=== PATIENT | female | born 1930 | race Caucasian/White ===

== ENCOUNTER 2016-08-08 06:22 | Outpatient (CLI) | payer OTHER ==
[2013-09-11 14:10] VITALS: BMI 27.3
[2016-08-08 06:31] LABS: ADD URINE MICROSCOPIC YES; BILIRUBIN,URINE Negative (NEGATIVE); KETONES,URINE Negative (NEGATIVE); LEUKOCYTE ESTERASE ,URINE 2+ (NEGATIVE); NITRITE,URINE Negative (NEGATIVE); PH,URINE 7.5 (5-9); PROTEIN,URINE 2+ (NEGATIVE); URINE, BLOOD 3+ (NEGATIVE)
[2016-08-08 06:33] LABS: BACTERIA,URINE 3+ (NOT PRESENT)
== END 2016-08-08 06:23 | disposition home or self-care (01) ==
LOC: NONPT 06:22
PROVIDERS: ATTEND Family Medicine
DX: R50.9 Fever, unspecified (principal)
CPT/HCPCS: 81001; 87086; 87186

== ENCOUNTER 2016-08-11 11:43 | Outpatient (CLI) ==
[2013-09-11 14:10] VITALS: BMI 27.3
== END 2016-08-11 11:44 | disposition home or self-care (01) ==
LOC: NONPT 11:43
PROVIDERS: ATTEND Family Medicine
DX: S51.001A Unspecified open wound of right elbow, initial encounter (principal)
CPT/HCPCS: 87070; 87186

== ENCOUNTER 2016-08-15 19:38 | Outpatient (CLI) ==
[2013-09-11 14:10] VITALS: BMI 27.3
== END 2016-08-15 19:39 | disposition home or self-care (01) ==
LOC: AMBL 19:38
PROVIDERS: ATTEND Emergency Medicine
DX: R62.7 Adult failure to thrive (principal); G30.9 Alzheimer's disease, unspecified; F02.80 Dementia in other diseases classified elsewhere, unspecified severity, without behavioral disturbance, psychotic disturbance, mood disturbance, and anxiety; K59.00 Constipation, unspecified; M54.9 Dorsalgia, unspecified

== ENCOUNTER 2016-08-25 12:41 | Outpatient (CLI) | payer OTHER ==
[2013-09-11 14:10] VITALS: BMI 27.3
== END 2016-08-25 12:42 | disposition home or self-care (01) ==
LOC: NONPT 12:41
PROVIDERS: ATTEND Family Medicine
DX: S51.001A Unspecified open wound of right elbow, initial encounter (principal)
CPT/HCPCS: 87070; 87186

== ENCOUNTER 2016-09-08 11:39 | Outpatient (CLI) ==
[2013-09-11 14:10] VITALS: BMI 27.3
== END 2016-09-08 11:40 | disposition home or self-care (01) ==
LOC: NONPT 11:39
PROVIDERS: ATTEND Family Medicine
DX: S51.001A Unspecified open wound of right elbow, initial encounter (principal)
CPT/HCPCS: 87070; 87186

== ENCOUNTER 2016-09-25 08:25 | Outpatient (CLI) ==
[2013-09-11 14:10] VITALS: BMI 27.3
== END 2016-09-25 08:26 | disposition home or self-care (01) ==
LOC: NONPT 08:25
PROVIDERS: ATTEND Family Medicine
DX: S51.001A Unspecified open wound of right elbow, initial encounter (principal)
CPT/HCPCS: 87070; 87186

== ENCOUNTER 2016-10-04 07:37 | Outpatient (CLI) ==
[2016-10-04 19:47] VITALS: BMI 23.1
== END 2016-10-04 07:38 | disposition home or self-care (01) ==
LOC: AMBL 07:37
PROVIDERS: ATTEND Family Medicine
DX: R06.9 Unspecified abnormalities of breathing (principal); R50.9 Fever, unspecified; R82.90 Unspecified abnormal findings in urine; G30.9 Alzheimer's disease, unspecified; F02.80 Dementia in other diseases classified elsewhere, unspecified severity, without behavioral disturbance, psychotic disturbance, mood disturbance, and anxiety; R40.2431 Glasgow coma scale score 3-8, in the field [EMT or ambulance]

== ENCOUNTER 2016-10-04 07:47 | Inpatient (IN) ==
[2016-10-04] MEDS ORDERED: URO-JET MUCOUSMEMB STA (07:50)
[2016-10-04] MEDS ORDERED: SODIUM CHLORIDE 1,000 ML IV STA ×3 (07:52→07:56)
[2016-10-04] MEDS ORDERED: ZOSYN 3.375 GM 3.375 GM in SODIUM CHLORIDE 100 ML IV STA (07:53)
[2016-10-04] MEDS ORDERED: VANCOMYCIN 1 GM in SODIUM CHLORIDE 250 ML IV STA (07:53)
[2016-10-04 08:14] LABS: BASOPHILS # (AUTO) 0.1 K/uL (0-0.2); BASOPHILS % (AUTO) 0.3 % (0.0-3.0); HEMATOCRIT 34.8 % (37.0-47.0); HEMOGLOBIN 11.3 g/dl (12.0-16.0); IMMATURE GRANULOCYTE % (AUTO) 0.9 % (0.0-5.0); LYMPHOCYTES # (AUTO) 1.5 K/uL (0.60-3.4); LYMPHOCYTES % (AUTO) 5.7 (10.0-50.0); MEAN CORPUSCULAR HEMOGLOBIN 29.4 pg (27.0-31.0); MEAN CORPUSCULAR HGB CONC 32.5 (31.8-35.4); MEAN CORPUSCULAR VOLUME 90.4 fl (81.0-99.0); MONOCYTES # (AUTO) 1.6 K/uL (0.4-2.0); MONOCYTES % (AUTO) 6.2 (0-10); NEUTROPHILS # (AUTO) 22.9 K/ul (2.0-6.9); NEUTROPHILS % (AUTO) 86.9; PLATELET COUNT 214 10^3/uL (140-440); RED BLOOD COUNT 3.85 10^6/ul (4.20-5.40)
[2016-10-04 08:15] LABS: WHITE BLOOD COUNT 26.34 K/ul (4.6-10.2)
[2016-10-04 08:29] LABS: ALBUMIN 2.9 g/dL (3.4-5.0); ALBUMIN/GLOBULIN RATIO 0.62; ANION GAP 20.6; BILIRUBIN,TOTAL 0.71 mg/dL (0.00-1.20); CREATININE 1.9 mg/dL (0.60-1.30); POTASSIUM 3.6 mmol/L (3.5-5.10); TOTAL PROTEIN 7.6 g/dL (5.8-8.1)
--- NOTE | 2016-10-04 08:46 | CT ---
EXAM: CT of the head without contrast History: Altered mental status. Technique: Multiplanar CT images through the head were obtained without the administration of IV co ntrast Findings: Motion artifact. The visualized paranasal sinuses and mastoid air cells are clear in gen eral. No acute calvarial abnormalities are identified within limitations of the motion artifact. Intracranially there is age appropriate atrophy. No dominant mass or midline shift. No hydrocephal ous. No acute intracranial hemorrhage or abnormal extraaxial fluid collections. Impression: No acute intracranial process.
[2016-10-04 08:49] LABS: ABG PCO2 29.4 mmHg (35-45); ABG PH 7.47 (7.35-7.45)
--- NOTE | 2016-10-04 08:49 | CT ---
EXAM: CT of the chest without contrast History: Cough and fever. Comparison: CT abdomen pelvis 10/04/2016 Technique: Multiplanar CT images through the thorax were obtained without the administration of IV contrast Findings: Heart is mildly enlarged. Coronary artery calcifications. Biapical lung scarring. Left lower lobe infiltrate and trace left pleural effusion. No pneumothorax. No pathologically enlarged axillary or mediastinal lymph nodes. Evaluation for hilar lymph nodes is limited due to the lack o f contrast administration. Great vessels are grossly unremarkable. Fluid seen within the esophagus . Small hiatal hernia. Partially visualized abdominal aortic aneurysm measuring up to 5.2 cm. Right hydronephrosis. Osteo penia. No acute osseous abnormalities. Impression: 1. Left lower lobe infiltrate and trace left pleural effusion. 2. Mild cardiomegaly and coronary artery disease. 3. Fluid within the esophagus suggesting reflux. 4. Small hiatal hernia. 5. Partially visualized large abdominal aortic aneurysm and right hydronephrosis. Please see dedic ated CT abdomen pelvis done on the same day for additional details.
[2016-10-04 08:50] LABS: ERYTHROCYTE SEDIMENTATION RATE 76 mm/hr (0-20); ESR INTERNAL QC INTERNAL QC VALID
[2016-10-04 08:50] LABS: ABG BASE EXCESS -2 (-2.0-2.0); ABG HCO3 21.5 (22.0-26.0); ABG TCO2 22 (22.0-28.0)
--- NOTE | 2016-10-04 08:52 | CT ---
EXAM: CT scan of the abdomen and pelvis without contrast HISTORY: UTI, questionable obstruction. TECHNIQUE: Imaging of the abdomen and pelvis was performed without intravenous contrast. 3 mm thin axial images and coronal and sagittal reconstructions were provided for interpretation. FINDINGS: There is moderate dilatation of the calyces of the right kidney and dilatation of the rig ht ureter. No definite right ureteral calculi are seen. A Bhandari catheter is identified within the u rinary bladder. The tip of the Bhandari catheter is identified within the distal right ureter. The liver, spleen, pancreas, adrenal glands appear normal. The small and large bowel loops are norm al caliber. There is fusiform aneurysmal dilatation of the infrarenal abdominal aorta measuring 4.7 cm transverse, 4.5 cm AP. The helical images obtained through the pelvis demonstrate a normal appearance of the rectum, there is no free fluid seen within the pelvis. The urinary bladder appears to be decompressed. The appen lisette appears normal. The patchy opacities are seen within the left lung base. No lytic or blastic le sions are seen within the osseous structures. IMPRESSION: There is moderate dilatation of the right ureter and calyces of the right kidney. No d efinite obstructing ureteral calculi seen. The findings may represent recent passage of a right uret eral calculus. A Bhandari catheter is identified within the urinary bladder. The distal end of the Bhandari catheter is located within the distal right ureter. Fusiform aneurysmal dilatation of the infrarenal abdominal aorta measuring 4.7 cm transverse, 4.5 cm AP. No evidence for small bowel obstruction.
[2016-10-04 09:11] LABS: BILIRUBIN,URINE Negative (NEGATIVE); KETONES,URINE Negative (NEGATIVE); LEUKOCYTE ESTERASE ,URINE 3+ (NEGATIVE); NITRITE,URINE Negative (NEGATIVE); PH,URINE >=9.0 (5-9); PROTEIN,URINE 3+ (NEGATIVE); URINE, BLOOD 3+ (NEGATIVE)
[2016-10-04 09:12] LABS: ADD URINE MICROSCOPIC YES
[2016-10-04 09:13] LABS: BACTERIA,URINE 2+ (NOT PRESENT)
--- NOTE | 2016-10-04 09:13 | ED.PDOC ---
General ED Provider: Dr. CAROLINA NESBITT-ER Chief Complaint: Shortness of Air Stated Complaint: shes sob and running a fever Time Seen by Physician: 07:50 Mode of Arrival: Ambulance Information Source: [facility], EMT Exam Limitations: Dementia, Altered mental status Primary Care Provider: SHAYY SHAIKH Nursing and Triage Documentation Reviewed and Agree: Yes Respiratory Complaint Exam - Respiratory Complaint/Exam Onset/Duration: less than 24hrs Symptoms Are: Resolved Timing: Intermittent Initial Severity: Mild Current Severity: Moderate Location: Chest Character: Reports: Non-productive cough Alleviating: Reports: None Associated Signs and Symptoms: Reports: Rapid breathing, Fever, Chills, Decreased oral intake. Denies: Dyspnea, Chest pain, Pleuritic chest pain, Wheezing, Hemoptysis, Dizziness, Calf pain, Calf swelling, Edema, URI, Nasal congestion, Hoarseness, Sinus discomfort, Vomiting, Sore throat, Weight loss, Increased thirst, Increased appetite, Increased urination History of Healthcare-Acquired Pneumonia: Lives at [facility] Home Oxygen Use: No Recent Stress Test: No Recent Echo/LV Function: No Current Antibiotic Use: No Current Asthma Medication Use: No Respiratory Distress: None Inadequate Respiratory Effort: No Dysphagia Present: No Stridor Present: No JVD Present: No Accessory Muscle Use: No Retractions: Not Present Diminished Breath Sounds: Yes Sinus Tenderness: None Grunting Respirations: No Kussmaul Respirations: No Differential Diagnoses: Pneumonia, Other Non-Traumatic Chest Pain Syncope: EKG Performed Review of Systems - Review Of Systems Constitutional: Reports: Chills, Fever, Weakness, Loss of appetite Eyes: Reports: No symptoms Ears, Nose, Mouth, Throat: Reports: No symptoms Respiratory: Reports: Cough Cardiac: Reports: No symptoms GI: Reports: No symptoms : Reports: No symptoms Musculoskeletal: Reports: No symptoms Skin: Reports: No symptoms Neurological: Reports: Cognitive dysfunction, Weakness Endocrine: Reports: No symptoms Hematologic/Lymphatic: Reports: No symptoms All Other Systems: Reviewed and Negative Past Medical History - Past Medical History Previously Healthy: Yes Endocrine: Reports: Unknown Cardiovascular: Reports: Unknown Respiratory: Reports: Unknown Hematological: Reports: Unknown Gastrointestinal: Reports: Unknown Genitourinary: Reports: Unknown Neuro/Psych: Reports: Dementia Musculoskeletal: Reports: Unknown Cancer: Reports: Unknown Last Menstrual Period: NONE - Surgical History General Surgical History: Reports: Unknown - Family History Family History: Reports: Unknown - Social History Smoking Status: Unknown if ever smoked Hx Substance Use: No Alcohol Screening: None Lives: With family Physical Exam - Physical Exam Appearance: Well-appearing, No pain distress, Well-nourished Eyes: KEY, EOMI, Conjunctiva clear ENT: Ears normal, Nose normal, Oropharynx normal Neck: Supple Respiratory: Airway patent Cardiovascular: RRR, Pulses normal, No rub, No murmur GI/: Soft Musculoskeletal: Normal strength, ROM intact, No edema, No calf tenderness Skin: Warm Neurological: Disoriented Psychiatric: Affect appropriate Interpretation - Radiology Interpretation Radiology Interpretation By: Radiologist Radiology Results: Positive Exam Interpreted: CT Scan - EKG Interpretation Time of EKG #1: 09:14 Rate: Normal Rhythm: Sinus Ectopy: None Center Point: NL ST Segment: Normal Physician Notification - Case Discussed Physician Notified: dr [email or web address] Time of Notification: 09:25 Critical Care Note - Critical Care Note Total Time (mins): 0 Course - Course Hematology/Chemistry: 10/04/16 08:05 10/04/16 08:05 Orders, Labs, Meds: Lab Review 10/04/16 10/04/16 10/04/16 07:49 08:05 08:45 WBC 26.34 H RBC 3.85 L Hgb 11.3 L Hct 34.8 L MCV 90.4 MCH 29.4 MCHC 32.5 RDW Coeff of Jenni 15.6 H Plt Count 214 Immature Gran % (Auto) 0.9 Neut % (Auto) 86.9 Lymph % (Auto) 5.7 L Churchill % (Auto) 6.2 Eos % (Auto) 0.0 Baso % (Auto) 0.3 Immature Gran # (Auto) 0.3 Neut # 22.9 H Lymph # 1.5 Churchill # 1.6 Eos # 0.0 Baso # 0.1 ESR 76 H Puncture Site R rad O2 Saturation 95.0 ABG pH 7.47 H ABG pCO2 29.4 L ABG pO2 70.0 L ABG HCO3 21.5 L ABG Total CO2 22 ABG Base Excess -2 Shyam Test + FiO2 % 21.0 Sodium 145 Potassium 3.6 Chloride 110 H Carbon Dioxide 18 L Anion Gap 20.6 BUN 38 H Creatinine 1.90 H Estimated GFR (MDRD) 25.00 BUN/Creatinine Ratio 20.00 Glucose 181 H Lactic Acid 16.3 Calcium 9.0 Total Bilirubin 0.71 AST 12 L ALT 8 L Alkaline Phosphatase 74 Total Protein 7.6 Albumin 2.9 L Globulin 4.7 Albumin/Globulin Ratio 0.62 Procalcitonin 56.41 Urine Color Yellow Urine Clarity Cloudy Urine pH >=9.0 Ur Specific [place] 1.010 Urine Protein 3+ Urine Glucose (UA) Negative Urine Ketones Negative Urine Blood 3+ Urine Nitrite Negative Urine Bilirubin Negative Urine Urobilinogen 0.2 Ur Leukocyte Esterase 3+ Urine Microscopic RBC 10-20 Urine Microscopic WBC 5-10 Ur Squamous Epith Cells Not present Ur Renal Epithelial Cell 0-2 Calcium Oxalate Crystal 1+ Urine Bacteria 2+ Orders Category Date Time Status ADMIT PATIENT INPATIENT .TO [facility] (NON-MONITORED ADMISSION 10/04/16 09: 27 Active BED) ABG DRAW REQUEST Stat CARDIO 10/04/16 07:49 Completed EKG-(ED ONLY) Stat CARDIO 10/04/16 07:49 Completed NEBULIZER TREATMENT Stat CARDIO 10/04/16 09:32 Ordered OXYGEN Routine CARDIO 10/04/16 09:29 Ordered ACTIVITY .Complete BR CARE 10/04/16 09:27 Active INTAKE & OUTPUT Q8HR CARE 10/04/16 09:27 Active VITAL SIGNS Q4HR CARE 10/04/16 09:27 Active SOFT DIET DIETARY 10/04/16 Lunch Ordered Catheter [ED CATHETER INSERTION AND CARE] .ONCE EMERGENCY 10/04/16 07:50 Active ABG Stat LAB 10/04/16 07:49 Completed BLOOD CULTURE Stat LAB 10/04/16 08:05 Received CBC W/ AUTO DIFF DAILY@0600 LAB 10/05/16 06:00 Ordered CBC W/ AUTO DIFF DAILY@0600 LAB 10/06/16 06:00 Ordered CBC W/ AUTO DIFF DAILY@0600 LAB 10/07/16 06:00 Ordered CBC W/ AUTO DIFF DAILY@0600 LAB 10/08/16 06:00 Ordered CBC W/ AUTO DIFF DAILY@0600 LAB 10/09/16 06:00 Ordered CBC W/ AUTO DIFF DAILY@0600 LAB 10/10/16 06:00 Ordered CBC W/ AUTO DIFF DAILY@0600 LAB 10/11/16 06:00 Ordered CBC W/ AUTO DIFF DAILY@0600 LAB 10/12/16 06:00 Ordered CBC W/ AUTO DIFF DAILY@0600 LAB 10/13/16 06:00 Ordered CBC W/ AUTO DIFF DAILY@0600 LAB 10/14/16 06:00 Ordered CBC W/ AUTO DIFF DAILY@0600 LAB 10/15/16 06:00 Ordered CBC W/ AUTO DIFF DAILY@0600 LAB 10/16/16 06:00 Ordered CBC W/ AUTO DIFF DAILY@0600 LAB 10/17/16 06:00 Ordered CBC W/ AUTO DIFF DAILY@0600 LAB 10/18/16 06:00 Ordered CBC W/ AUTO DIFF DAILY@0600 LAB 10/19/16 06:00 Ordered CBC W/ AUTO DIFF DAILY@0600 LAB 10/20/16 06:00 Ordered CBC W/ AUTO DIFF DAILY@0600 LAB 10/21/16 06:00 Ordered CBC W/ AUTO DIFF DAILY@0600 LAB 10/22/16 06:00 Ordered CBC W/ AUTO DIFF DAILY@0600 LAB 10/23/16 06:00 Ordered CBC W/ AUTO DIFF DAILY@0600 LAB 10/24/16 06:00 Ordered CBC W/ AUTO DIFF Stat LAB 10/04/16 08:05 Completed COMPREHENSIVE METABOLIC PANEL DAILY@0600 LAB 10/05/16 06:00 Ordered COMPREHENSIVE METABOLIC PANEL DAILY@0600 LAB 10/06/16 06:00 Ordered COMPREHENSIVE METABOLIC PANEL DAILY@0600 LAB 10/07/16 06:00 Ordered COMPREHENSIVE METABOLIC PANEL DAILY@0600 LAB 10/08/16 06:00 Ordered COMPREHENSIVE METABOLIC PANEL DAILY@0600 LAB 10/09/16 06:00 Ordered COMPREHENSIVE METABOLIC PANEL DAILY@0600 LAB 10/10/16 06:00 Ordered COMPREHENSIVE METABOLIC PANEL DAILY@0600 LAB 10/11/16 06:00 Ordered COMPREHENSIVE METABOLIC PANEL DAILY@0600 LAB 10/12/16 06:00 Ordered COMPREHENSIVE METABOLIC PANEL DAILY@0600 LAB 10/13/16 06:00 Ordered COMPREHENSIVE METABOLIC PANEL DAILY@0600 LAB 10/14/16 06:00 Ordered COMPREHENSIVE METABOLIC PANEL DAILY@0600 LAB 10/15/16 06:00 Ordered COMPREHENSIVE METABOLIC PANEL DAILY@0600 LAB 10/16/16 06:00 Ordered COMPREHENSIVE METABOLIC PANEL DAILY@0600 LAB 10/17/16 06:00 Ordered COMPREHENSIVE METABOLIC PANEL DAILY@0600 LAB 10/18/16 06:00 Ordered COMPREHENSIVE METABOLIC PANEL DAILY@0600 LAB 10/19/16 06:00 Ordered COMPREHENSIVE METABOLIC PANEL DAILY@0600 LAB 10/20/16 06:00 Ordered COMPREHENSIVE METABOLIC PANEL DAILY@0600 LAB 10/21/16 06:00 Ordered COMPREHENSIVE METABOLIC PANEL DAILY@0600 LAB 10/22/16 06:00 Ordered COMPREHENSIVE METABOLIC PANEL DAILY@0600 LAB 10/23/16 06:00 Ordered COMPREHENSIVE METABOLIC PANEL DAILY@0600 LAB 10/24/16 06:00 Ordered COMPREHENSIVE METABOLIC PANEL Stat LAB 10/04/16 08:05 Completed ESR Stat LAB 10/04/16 08:05 Completed LACTIC ACID Stat LAB 10/04/16 08:05 Completed PROCALCITONIN Stat LAB 10/04/16 08:05 Completed URINALYSIS C & S IF INDICATED Stat LAB 10/04/16 08:45 Completed URINE CULTURE Stat LAB 10/04/16 09:11 Received Acetaminophen [Tylenol] MEDS 10/04/16 09:27 Active 650 mg PO Q4H PRN Bisacodyl [Dulcolax] MEDS 10/04/16 09:31 Discontinued 10 mg PO Q24H PRN Enoxaparin Sodium [Lovenox] MEDS 10/05/16 09:00 Active 30 mg SUBCUT DAILY Levalbuterol HCl [Xopenex 0.63 mg] MEDS 10/04/16 12:00 Active 1 vial NEB RTQ6H Lidocaine HCl [Uro-Jet] MEDS 10/04/16 07:50 Discontinued 10 ml MUCOUSMEMB ONCE STA Piperacillin Sodium/Tazobactam [Zosyn 3.375 gm] 3.375 MEDS 10/04/16 07:53 Discontinued gm 0.9 % Sodium Chloride [Sodium Chloride] 100 ml IV ONCE Sodium Chloride 0.9% [Sodium Chloride] 1,000 ml MEDS 10/04/16 07:56 Active IV 100 mls/hr Sodium Chloride 0.9% [Sodium Chloride] 1,000 ml MEDS 10/04/16 09:30 Active IV 75 mls/hr Vancomycin HCl [Vancomycin] 1 gm MEDS 10/04/16 07:53 Discontinued 0.9 % Sodium Chloride [Sodium Chloride] 250 ml IV ONCE RESUSCITATION STATUS Routine OTHERS 10/04/16 09:[address] ABDOMEN/PELVIS WO CONTRAST Stat RADS 10/04/16 07:[address] CHEST W/O CONTRAST Stat RADS 10/04/16 07:[address] HEAD W/O CONTRAST Stat RADS 10/04/16 07:50 Completed Medications Generic Name Dose Route Start Last Admin Trade Name Freq PRN Reason Stop Dose Admin Acetaminophen 650 mg 10/04/16 09:27 Tylenol PO Q4H PRN Mild Pain Bisacodyl 10 mg 10/04/16 09:59 Dulcolax PO DAILY PRN CONSTIPATION Calcium/Vitamin D 1 each 10/04/16 21:00 Calcium 500 + Vit D 200 Mg Tablet PO BID NEVIN Enoxaparin Sodium 30 mg 10/05/16 09:00 Lovenox SUBCUT DAILY NEVIN Sodium Chloride 1,000 mls @ 100 mls/hr 10/04/16 07:56 10/04/16 08:06 Sodium Chloride IV 10/04/16 17:55 100 mls/hr .Q10H STA Administration Sodium Chloride 1,000 mls @ 75 mls/hr 10/04/16 09:30 Sodium Chloride IV .[id number] NEVIN Piperacillin Sod/Tazobactam 100 mls @ 100 mls/hr 10/04/16 13:00 Sod 2.25 gm/ Sodium Chloride IV Q6HR NEVIN Vancomycin HCl 500 mg/ Sodium 100 mls @ 100 mls/hr 10/05/16 09:00 Chloride IV DAILY NEVIN Levalbuterol HCl 1 vial 10/04/16 12:00 Xopenex 0.63 Mg NEB RTQ6H NEVIN Magnesium Hydroxide 30 ml 10/04/16 09:44 Milk Of Magnesia PO DAILY PRN CONSTIPATION Discontinued Medications Generic Name Dose Route Start Last Admin Trade Name Yvonne PRN Reason Stop Dose Admin Bisacodyl 10 mg 10/04/16 09:31 Dulcolax PO Q24H PRN Constipation Piperacillin Sod/Tazobactam 100 mls @ 100 mls/hr 10/04/16 07:53 10/04/16 09: 07 Sod 3.375 gm/ Sodium Chloride IV 10/04/16 08:52 100 mls/hr ONCE STA Administration Vancomycin HCl 1 gm/ Sodium 250 mls @ 250 mls/hr 10/04/16 07:53 Chloride IV 10/04/16 08:52 ONCE STA Lidocaine HCl 10 ml 10/04/16 07:50 10/04/16 08:51 Uro-Jet MUCOUSMEMB 10/04/16 07:51 Not Given ONCE STA spoke with her grandson poa and made him aware of lab and xray findings --ok for admission here) Vital Signs: Temp Pulse Resp BP Pulse Ox 10/04/16 07:47 98.2 F 87 28 H 110/70 93 L Departure - Departure Time of Disposition: 09:26 Disposition: ADMITTED INPATIENT Discharge Problem: Pyelonephritis, Pneumonia Condition: Poor Pt referred to PMD for follow-up: Yes Allergies/Adverse Reactions: Allergies No Known Allergies Allergy (Verified 10/04/16 08:31) Home Medications: Ambulatory Orders Acetaminophen [Pain Relief] 650 mg PO Q8H PRN 10/04/16 Bisacodyl [Dulcolax] 10 mg PO Q24H PRN 10/04/16 Calcium Carbonate 500 mg PO BID 10/04/16 Magnesium Hydroxide [Milk of Magnesia] 2,400 mg PO DAILY PRN 10/04/16 Nystatin [Nystop Powder] 1 applic TP Q8H PRN 10/04/16 Disposition Discussed With: Patient, Family (left message for poa to call us regarding admission)
[2016-10-04] MEDS ORDERED: TYLENOL PO PRN (09:27)
[2016-10-04] MEDS ORDERED: DULCOLAX PO PRN ×2 (09:31→09:59)
[2016-10-04] MEDS ORDERED: MAGNESIUM HYDROXIDE 2400 MG PO PRN (09:31)
[2016-10-04] MEDS ORDERED: MILK OF MAGNESIA PO PRN (09:44)
[2016-10-04] MEDS ORDERED: ZOSYN 2.25 GM 2.25 GM in SODIUM CHLORIDE 100 ML IV SCH (13:00)
[2016-10-04] MEDS ORDERED: ZOSYN 3.375 GM 3.375 GM in SODIUM CHLORIDE 100 ML IV SCH (13:00)
[2016-10-04] MEDS: ROCEPHIN 1 GM in SODIUM CHLORIDE 50 ML IV SCH (15:03)
[2016-10-04] MEDS: SODIUM CHLORIDE 1,000 ML IV SCH (15:04)
[2016-10-04] MEDS: XOPENEX 0.63 MG NEB SCH ×3 (16:05→23:13)
[2016-10-04] MEDS: BACTROBAN TP SCH ×2 (16:21→21:23)
[2016-10-04 18:39] LABS: ALBUMIN 2.6 g/dL (3.4-5.0); ANION GAP 18.5; BUN/CREATININE RATIO 21.13; CALCIUM 8.5 mg/dL (8.2-10.2); CREATININE 1.94 mg/dL (0.60-1.30); PHOSPHORUS 2.4 mg/dL (2.8-4.1); POTASSIUM 3.5 mmol/L (3.5-5.10)
[2016-10-04 19:47] VITALS: BMI 23.1
[2016-10-04] MEDS ORDERED: CALCIUM CARBONATE 500 MG PO SCH (21:00)
[2016-10-04] MEDS: CALCIUM 500 + VIT D 200 MG TABLET PO SCH (21:23)
[2016-10-05] MEDS: SODIUM CHLORIDE 1,000 ML IV SCH (00:22)
[2016-10-05] MEDS: XOPENEX 0.63 MG NEB SCH ×4 (05:16→23:03)
[2016-10-05 05:28] LABS: BASOPHILS # (AUTO) 0.1 K/uL (0-0.2); BASOPHILS % (AUTO) 0.4 % (0.0-3.0); EOSINOPHILS # (AUTO) 0.2 K/ul (0.0-0.7); EOSINOPHILS % (AUTO) 0.9 % (0.0-7.0); HEMATOCRIT 29.6 % (37.0-47.0); HEMOGLOBIN 9.4 g/dl (12.0-16.0); IMMATURE GRANULOCYTE % (AUTO) 0.9 % (0.0-5.0); LYMPHOCYTES % (AUTO) 10.9 (10.0-50.0); MEAN CORPUSCULAR HEMOGLOBIN 29.4 pg (27.0-31.0); MEAN CORPUSCULAR HGB CONC 31.8 (31.8-35.4); MEAN CORPUSCULAR VOLUME 92.5 fl (81.0-99.0); MONOCYTES # (AUTO) 1.3 K/uL (0.4-2.0); MONOCYTES % (AUTO) 7.4 (0-10); NEUTROPHILS # (AUTO) 14.3 K/ul (2.0-6.9); NEUTROPHILS % (AUTO) 79.5; PLATELET COUNT 147 10^3/uL (140-440); WHITE BLOOD COUNT 17.93 K/ul (4.6-10.2)
[2016-10-05 06:00] LABS: ALBUMIN 2.3 g/dL (3.4-5.0); ALBUMIN/GLOBULIN RATIO 0.53; ANION GAP 15.3; BILIRUBIN,TOTAL 0.32 mg/dL (0.00-1.20); BUN/CREATININE RATIO 25.4; CALCIUM 8.2 mg/dL (8.2-10.2); CREATININE 1.85 mg/dL (0.60-1.30); POTASSIUM 3.3 mmol/L (3.5-5.10); TOTAL PROTEIN 6.6 g/dL (5.8-8.1)
[2016-10-05] MEDS ORDERED: VANCOMYCIN 1 GM in SODIUM CHLORIDE 250 ML IV SCH (09:00)
--- NOTE | 2016-10-05 09:02 | HP ---
SOURCE OF HISTORY: Nurse at [facility] who was in charge of Keturah this morning and triage notes plus MD notes from the emergency room. The patient is non-verbal and is not oriented at all. HISTORY OF PRESENT ILLNESS: The patient was noted to have temperature about 2:00 this morning. The patient was vomiting and was noted to have a cold and clammy perspiration. The patient this morning was noted to have shortness of breath as well fever and so she was sent to the emergency room for further evaluation. The patient is also somewhat lethargic compared to the prior times when she didn't have any problems. The nurse mentioned that this patient behaved similarly when she had Urosepsis. The patient was evaluated in the emergency and had the following radiological studies; CT head no acute intracranial processes; CT chest left lower lobe infiltrate probably pneumonitis with left pleural effusions, small, mild cardiomegaly with CAD, fluid in the esophagus suggesting reflux, large abdominal aortic aneurysm infrarenal about 4.7cm transverse measure and 4.5 anterior and posterior, right hydronephrosis and dilatation of the right ureter with no stone identified. Further studied that patient has Bhandari Catheter in the bladder and the distal end of the Bhandari catheter is located within the distal right ureter. Asked the nurses to felice it and pull it backwards. I will discuss this with the radiologist this coming Wednesday, tomorrow. Labs done showed severe leukocytosis with 26,340, 22.9 neutrophils. ESR 76 probably because of the infection. Blood cultures were obtained at the emergency room. Arterial blood gasses not significantly abnormal. Electrolyte normal except chloride is 110, 107 upper normal, CO2 18, BUN 38, creatine 1.90, EGFR 25. Blood sugar 181, lactic acid normal, procalcitonin markedly elevated 56.41. This patient was given Zosyn plus Vancomycin in the emergency room. I had discontinued the Zosyn and discussing with the PharmD we have replaced with with Rocephin however if the patient has an e-coli and ESBL negative the coverage maybe adequate however if it positive it would be worth while probably to have Ertapenem. Tried to get in touch again with the PharmD. The recent information that I had read was combination of Vancomycin and Zosyn has a higher renal consequences. Did not mention and Beta Lactams antibiotics. Urinalysis abnormal. PAST PERSONAL HISTORY: The patient is non-verbal. This will be just from the previous recorded history. History of Depression Back pain Dementia Constipation FAMILY HISTORY: The patient is non-verbal. I did talk to the Nurse Home nurse and a lady showed up at the Nurse Home from [place] and claimed that she is a daughter of Ms. Agustin. She was given up for adoption years ago. Ms. Agustin also has a daughter but she is now and the grandson is the POA, Gaston Johnson. SOCIAL HISTORY: The patient is and has been resident of [facility] for sometime. Dr. Guerrero is her primary provider. MEDICATIONS: Nystatin Powder to be applied externally every 8 hours as needed Magnesium Hydroxide (Milk of Magnesia) 2,400mg per 10cc, 10cc a day PRN Dulcolax tablet 10mg PO Q 24 hours PRN for constipation Tylenol 650mg Q 8 hours PRN Calcium Carbonate 500mg per cc 5cc twice a day ALLERGIES: No known drug allergies. REVIEW OF SYSTEMS: CONSTITUTIONAL: The patient has fever but no chills [facility]. She was observed to be somewhat lethargic. The rest of the systems review could not done on account of the patient's condition she is non- verbal and not oriented. [employer]ER: VISUAL: AUDITORY: RESPIRATORY: CARDIOVASCULAR: GASTROINTESTINAL: GENITOURINARY: MUSCULOSKELETAL: ENDOCRINE: INTEGUMENT: ENDOCRINE: HEMATOLOGIC: INTEGUMENT: PSYCHIATRIC: PHYSICAL EXAMINATION: GENERAL: The patient is an 85 year old white female who opens her eyes but doesn't answer any questions nor follow verbal commands. She does not appear to be dyspneic or tachypneic and no cyanosis. EYES: Pupils equal/reactive to light. About 3mm in size and both have mature cataracts. Conjunctivae not pale. Sclerae not icteric. FACE: Symmetrical and equal with no facial weakness. MOUTH: The patient would not open her mouth THROAT: No inflammation, tumors or exudate. NECK: No masses. No bruit. No tenderness. No rigidity. CHEST: The patient is kyphotic. No tenderness. LUNGS: Breath sounds are diminished with some expiratory wheeze at the left lower base. However the patient was examined in the left lateral decubitus positive. HEART: Audible and regular with good tones. No murmurs. ABDOMEN: Soft with some tenderness. No muscular guarding, bowel sounds are active. LOWER EXTREMITIES: The patient has superficial area on the 5th MTP joint. This is probably because she is laying most on the left but there is no ulceration. The anterior tibials are present. UPPER EXTREMITIES: The patient has an ulceration in the right posterior elbow. This probably again is secondary to a pressure sore. ASSESSMENT: 1. Urinary tract infection with probable bacteremia if procalcitonin is markedly elevated 2. Senile Dementia, severe 3. Infrarenal abdominal aortic aneurysm 4.7cm 4. Hydroureter and Hydronephrosis, right etiology undetermined maybe secondary to the catheter that is lodged at the distal ureter. PROGNOSIS: Poor PLAN: 1. Will repeat renal panel to see if there is any improvement with the GFR with hydration MTDD
[2016-10-05] MEDS: LOVENOX SUBCUT SCH (10:06)
[2016-10-05] MEDS: ROCEPHIN 1 GM in SODIUM CHLORIDE 50 ML IV SCH (10:06)
[2016-10-05] MEDS: BACTROBAN TP SCH ×2 (10:09→20:25)
[2016-10-05] MEDS: CALCIUM 500 + VIT D 200 MG TABLET PO SCH ×2 (10:10→20:25)
[2016-10-05] MEDS: VANCOMYCIN 500 MG in SODIUM CHLORIDE 100 ML IV SCH (11:18)
[2016-10-05] MEDS ORDERED: INFUVITE ADULT IV ONE (16:13)
[2016-10-05] MEDS: INFUVITE ADULT 10 ML in D5%-1/2NS-KCL 20 MEQ/L IV SOL 1,000 ML IV SCH (16:28)
[2016-10-05] MEDS ORDERED: INVANZ 0.5 GM in SODIUM CHLORIDE 50 ML IV SCH (22:00)
[2016-10-05] MEDS ORDERED: INVANZ ONE (22:41)
[2016-10-06] MEDS: INFUVITE ADULT 10 ML in D5%-1/2NS-KCL 20 MEQ/L IV SOL 1,000 ML IV SCH ×2 (01:09→09:59)
[2016-10-06] MEDS: XOPENEX 0.63 MG NEB SCH ×4 (04:56→23:16)
[2016-10-06 05:23] LABS: BASOPHILS % (AUTO) 0.3 % (0.0-3.0); EOSINOPHILS # (AUTO) 0.8 K/ul (0.0-0.7); EOSINOPHILS % (AUTO) 7.6 % (0.0-7.0); HEMATOCRIT 26.4 % (37.0-47.0); HEMOGLOBIN 8.3 g/dl (12.0-16.0); IMMATURE GRANULOCYTE % (AUTO) 0.5 % (0.0-5.0); LYMPHOCYTES # (AUTO) 1.2 K/uL (0.60-3.4); MEAN CORPUSCULAR HEMOGLOBIN 29.2 pg (27.0-31.0); MEAN CORPUSCULAR HGB CONC 31.4 (31.8-35.4); MONOCYTES # (AUTO) 0.8 K/uL (0.4-2.0); MONOCYTES % (AUTO) 8.1 (0-10); NEUTROPHILS # (AUTO) 7.2 K/ul (2.0-6.9); NEUTROPHILS % (AUTO) 71.5; PLATELET COUNT 142 10^3/uL (140-440); RED BLOOD COUNT 2.84 10^6/ul (4.20-5.40); WHITE BLOOD COUNT 10.05 K/ul (4.6-10.2)
[2016-10-06 05:43] LABS: ALANINE AMINOTRANSFERASE < 6 U/L (12-78); ALBUMIN/GLOBULIN RATIO 0.54; ALKALINE PHOSPHATASE 53 U/L (53-141); ANION GAP 15.3; ASPARTATE AMINO TRANSFERASE 12 U/L (15-37); BLOOD UREA NITROGEN 29 mg/dL (7-18); BUN/CREATININE RATIO 25.21; CALCIUM 7.7 mg/dL (8.2-10.2); CARBON DIOXIDE 19 mmol/L (23-31); CHLORIDE 117 mmol/L (98-107); CREATININE 1.15 mg/dL (0.60-1.30); GLUCOSE 175 mg/dL (82-115); POTASSIUM 3.3 mmol/L (3.5-5.10); SODIUM 148 mmol/L (136-145); TOTAL PROTEIN 5.7 g/dL (5.8-8.1)
[2016-10-06] MEDS: VANCOMYCIN 500 MG in SODIUM CHLORIDE 100 ML IV SCH (08:45)
[2016-10-06] MEDS: CALCIUM 500 + VIT D 200 MG TABLET PO SCH ×2 (08:45→21:51)
[2016-10-06] MEDS: LOVENOX SUBCUT SCH (08:45)
[2016-10-06] MEDS: BACTROBAN TP SCH ×2 (08:48→21:51)
[2016-10-06] MEDS: ROCEPHIN 1 GM in SODIUM CHLORIDE 50 ML IV SCH (10:53)
[2016-10-06] MEDS: SODIUM CHLORIDE 1,000 ML IV SCH (13:51)
[2016-10-06] MEDS: [UNRECOGNIZED DRUG - MIXTURE] IV SCH (18:21)
[2016-10-06] MEDS ORDERED: INVANZ 0.5 GM in SODIUM CHLORIDE 50 ML IV SCH (21:00)
[2016-10-07] MEDS ORDERED: POTASSIUM CHLORIDE 20 MEQ VIAL-ADDITIVE ONLY IV ONE ×3 (00:59→19:53)
[2016-10-07 04:46] LABS: BASOPHILS % (AUTO) 0.4 % (0.0-3.0); EOSINOPHILS # (AUTO) 0.8 K/ul (0.0-0.7); EOSINOPHILS % (AUTO) 10.9 % (0.0-7.0); HEMATOCRIT 26.8 % (37.0-47.0); HEMOGLOBIN 8.7 g/dl (12.0-16.0); IMMATURE GRANULOCYTE % (AUTO) 0.5 % (0.0-5.0); LYMPHOCYTES # (AUTO) 1.5 K/uL (0.60-3.4); LYMPHOCYTES % (AUTO) 19.6 (10.0-50.0); MEAN CORPUSCULAR HEMOGLOBIN 29.4 pg (27.0-31.0); MEAN CORPUSCULAR HGB CONC 32.5 (31.8-35.4); MEAN CORPUSCULAR VOLUME 90.5 fl (81.0-99.0); MONOCYTES # (AUTO) 0.7 K/uL (0.4-2.0); MONOCYTES % (AUTO) 9.1 (0-10); NEUTROPHILS # (AUTO) 4.6 K/ul (2.0-6.9); NEUTROPHILS % (AUTO) 59.5; PLATELET COUNT 142 10^3/uL (140-440); RED BLOOD COUNT 2.96 10^6/ul (4.20-5.40); WHITE BLOOD COUNT 7.69 K/ul (4.6-10.2)
[2016-10-07] MEDS: XOPENEX 0.63 MG NEB SCH ×4 (05:02→23:13)
[2016-10-07 05:11] LABS: ALANINE AMINOTRANSFERASE < 6 U/L (12-78); ALBUMIN 2.1 g/dL (3.4-5.0); ALBUMIN/GLOBULIN RATIO 0.54; ALKALINE PHOSPHATASE 57 U/L (53-141); ANION GAP 15.6; ASPARTATE AMINO TRANSFERASE 12 U/L (15-37); BILIRUBIN,TOTAL 0.34 mg/dL (0.00-1.20); BLOOD UREA NITROGEN 13 mg/dL (7-18); BUN/CREATININE RATIO 15.11; CALCIUM 8.1 mg/dL (8.2-10.2); CARBON DIOXIDE 19 mmol/L (23-31); CHLORIDE 109 mmol/L (98-107); CREATININE 0.86 mg/dL (0.60-1.30); GLUCOSE 109 mg/dL (82-115); POTASSIUM 3.6 mmol/L (3.5-5.10); SODIUM 140 mmol/L (136-145)
[2016-10-07] MEDS: [UNRECOGNIZED DRUG - MIXTURE] IV SCH ×2 (07:33→19:59)
[2016-10-07] MEDS: BACTROBAN TP SCH ×2 (10:16→20:00)
[2016-10-07] MEDS: LOVENOX SUBCUT SCH (10:16)
[2016-10-07] MEDS: CALCIUM 500 + VIT D 200 MG TABLET PO SCH ×2 (10:16→20:00)
[2016-10-07] MEDS: ROCEPHIN 1 GM in SODIUM CHLORIDE 50 ML IV SCH (10:17)
[2016-10-07] MEDS: VANCOMYCIN 500 MG in SODIUM CHLORIDE 100 ML IV SCH (10:18)
[2016-10-07 13:06] LABS: BILIRUBIN,URINE Negative (NEGATIVE); KETONES,URINE Negative (NEGATIVE); LEUKOCYTE ESTERASE ,URINE 1+ (NEGATIVE); NITRITE,URINE Negative (NEGATIVE); PH,URINE 5.5 (5-9); PROTEIN,URINE Negative (NEGATIVE); URINE, BLOOD 2+ (NEGATIVE)
[2016-10-07 13:14] LABS: ADD URINE MICROSCOPIC YES
[2016-10-07 13:15] LABS: BACTERIA,URINE 1+ (NOT PRESENT)
--- NOTE | 2016-10-07 14:17 | PN ---
DATE OF VISIT: 10/05/16 The patient had no oral intake today. The IV fluid amount was increased. CBC showed a decreasing WBC and now 17,930 from 26,340. The hemoglobin is down to 9.4. RDW about the same at 15.7. Cell indices normal. Neutrophils are down to 14.3 from 22.9. There are no stabs. Electrolytes showed slightly lower potassium and slightly higher chlorides 115, upper normal 107. BUN has increased from 41 to 47 and creatinine is down from 1.94 to 1.85. E GFR is 26. I had discussed with the [employer] with regards to Ertapenem and she told me that I can give 500 mg daily in light of the patient's renal problem. The Procalcitonin was elevated and we will repeat that Procalcitonin tomorrow. Lactic acid was normal. The preliminary urine culture showed heavy growth of gram negative rods, may be e.coli. Wound culture with heavy growth of gram positive cocci. The patient has an ulceration of the right elbow. We will try to give Ertapenem 1 dose tonight in light of the heavy growth of gram negative rods. Gram positive should be covered by the Rocephin. The patient is on Vancomycin. VITAL SIGNS: 10/05/2016 at 6 p.m. today showed a temperature of 97.5 tympanic, pulse 64, blood pressure 118/58, respiratory rate 18, oxygen saturation 96 at 2 liters. LUNGS: Still has some coarse rales and coarse breath sounds in the right base. PROGNOSIS: Poor. MTDD
[2016-10-08 04:51] LABS: BASOPHILS # (AUTO) 0.1 K/uL (0-0.2); BASOPHILS % (AUTO) 0.5 % (0.0-3.0); EOSINOPHILS # (AUTO) 0.6 K/ul (0.0-0.7); EOSINOPHILS % (AUTO) 5.1 % (0.0-7.0); HEMOGLOBIN 10.9 g/dl (12.0-16.0); IMMATURE GRANULOCYTE % (AUTO) 0.8 % (0.0-5.0); LYMPHOCYTES # (AUTO) 1.9 K/uL (0.60-3.4); LYMPHOCYTES % (AUTO) 16.5 (10.0-50.0); MEAN CORPUSCULAR HEMOGLOBIN 29.1 pg (27.0-31.0); MEAN CORPUSCULAR HGB CONC 32.1 (31.8-35.4); MEAN CORPUSCULAR VOLUME 90.9 fl (81.0-99.0); MONOCYTES # (AUTO) 0.9 K/uL (0.4-2.0); MONOCYTES % (AUTO) 7.7 (0-10); NEUTROPHILS % (AUTO) 69.4; PLATELET COUNT 162 10^3/uL (140-440); RED BLOOD COUNT 3.74 10^6/ul (4.20-5.40); WHITE BLOOD COUNT 11.49 K/ul (4.6-10.2)
[2016-10-08] MEDS: XOPENEX 0.63 MG NEB SCH ×4 (05:07→23:08)
[2016-10-08 05:21] LABS: ALBUMIN 2.5 g/dL (3.4-5.0); ALBUMIN/GLOBULIN RATIO 0.52; BILIRUBIN,TOTAL 0.52 mg/dL (0.00-1.20); BUN/CREATININE RATIO 10.75; CALCIUM 8.8 mg/dL (8.2-10.2); CREATININE 0.93 mg/dL (0.60-1.30); TOTAL PROTEIN 7.3 g/dL (5.8-8.1)
[2016-10-08] MEDS: [UNRECOGNIZED DRUG - MIXTURE] IV SCH (08:44)
[2016-10-08] MEDS: CALCIUM 500 + VIT D 200 MG TABLET PO SCH ×2 (09:33→20:34)
[2016-10-08] MEDS: ROCEPHIN 1 GM in SODIUM CHLORIDE 50 ML IV SCH (09:34)
[2016-10-08] MEDS: LOVENOX SUBCUT SCH (09:34)
[2016-10-08] MEDS: BACTROBAN TP SCH ×2 (10:46→21:43)
[2016-10-08] MEDS: VANCOMYCIN 500 MG in SODIUM CHLORIDE 100 ML IV SCH (10:46)
--- NOTE | 2016-10-08 11:19 | PN ---
DATE OF VISIT: 10/06/16 The patient's general appearance is better. Her color is better. She is not dyspneic, nor tachypneic, but still not eating. She had not been eating also very much at the detention. We are continuing the IV fluids and hopefully we can maintain hydration and that her appetite will also get better. I have not discussed the case with the POA, who is the grandson. I would try to touch base with him. The patient's WBC is now normal at 10,050. RBC is severely decreased, as well as the hemoglobin from hydration. It is now 8.3 and was 11.3 on admission. Hematocrit is down to 26.4 and MCV 93, MCH is 29.2. Neutrophils down to 7.2, no stabs. Electrolytes close to normal. The potassium is still 3.3, chloride 117, sodium 148. IV is changed to D5W plus potassium. Blood sugar 175, but this patient is given IV fluid with Dextrose. VITAL SIGNS: At 6 p.m. showed the temperature 98.2 axillary, pulse rate 70, respiratory rate 16, oxygen saturation 98 at 2 liters. LUNGS: Breath sounds are diminished in both sides. The patient is not following verbal commands. I have to stimulate her in order for her to take some deeper breaths. HEART: Audible and regular. ABDOMEN: No significant tenderness. CONDITION: Improved. Her Procalcitonin is down to 45.92 from 66.41. These levels are considered from an individual that may be septic or has sepsis. The wound culture was staph aureus, methicillin resistant, but sensitive to Vancomycin and sulfa and Tetracycline, Rifampin, as well as Linezolid and Quinupristin. This patient is receiving Vancomycin. The klebsiella pneumonia in the urine is sensitive to Ceftriaxone. This patient, again, is receiving Rocephin. MTDD
--- NOTE | 2016-10-08 11:31 | PN ---
DATE OF VISIT: 10/07/16 The patient is alert, not dyspneic, nor tachypneic and no cyanosis. VITAL SIGNS: At 5:47 p.m., temperature 97.8, pulse 70, blood pressure 136/67, respiratory rate 16, oxygen saturation 98. Stated as room air. Maybe the nasal cannula is off when the measurement was done. Temperature was done tympanic. The previous temperature to that was placed as oral, which I think is a mistake. HEART: Normal sinus rhythm. LUNGS: Diminished breath sounds. EXTREMITIES: The patient now has contracture of the fingers of the left hand. I tried to elevate the legs so there will be no pressure on the heels and the knees also has contractures that I could not flex and I could not raise the legs and put the pillow underneath her legs to free the heels from pressure. We will try to put a smaller support other than a pillow to raise the heels above the cushion. LABS: Today, showed further decrease of the WBC to 7,690, hemoglobin remained at 8.7, slightly higher than yesterday, as well as the hematocrit now 26.8. Neutrophils now normal at 4.6. Sodium normal. Potassium normal, chloride is close to normal at 109. E GFR is 63. Blood sugar 109. Procalcitonin 22.8, much lower than yesterday. Repeat urinalysis showed a decreasing RBC 5-10, WBC is 5-10. Bacteria 1+, yeast 1+. 2+ blood from 3+. This patient has a Bhandari catheter. The blood culture is negative. CONDITION: Improved. PROGNOSIS: Unchanged. [facility]
[2016-10-08 13:41] LABS: BILIRUBIN,URINE Negative (NEGATIVE); KETONES,URINE Negative (NEGATIVE); LEUKOCYTE ESTERASE ,URINE 1+ (NEGATIVE); NITRITE,URINE Negative (NEGATIVE); PH,URINE 6.5 (5-9); PROTEIN,URINE Negative (NEGATIVE); URINE, BLOOD 1+ (NEGATIVE)
[2016-10-08 13:44] LABS: ADD URINE MICROSCOPIC YES
--- NOTE | 2016-10-08 15:05 | CT ---
EXAM: CT of the abdomen pelvis without contrast History: Vomiting. Comparison: CT abdomen pelvis 10/04/2016 Technique: Multiplanar CT images through the abdomen and pelvis were obtained without the administr ation of IV contrast Findings: Small hiatal hernia and fluid seen within the distal esophagus. Coronary calcifications a nd mild cardiomegaly. Small left pleural effusion and trace right pleural effusion. Visualized oss eous structures unchanged with no acute osseous abnormalities identified. Wall thickening within the distal esophagus. Stomach is moderately distended with fluid. No bowel o bstruction. Small fat-containing umbilical hernia again noted. No free air. Bhandari catheter within the decompressed bladder. Moderate stool within the rectosigmoid colon. Atrophic uterus. Trace p elvic fluid. No ascites. Atherosclerotic vascular calcifications. No significant interval change in the infrarenal abdominal aortic aneurysm measuring up to 4.7 cm. The distal rectal wall is not w ell distended. Resolved right hydronephrosis. Left kidney is unremarkable. Colonic diverticulosis Impression: 1. Small hiatal hernia with fluid filled distal esophagus and esophageal wall thickening suggesting esophagitis. 2. Stomach is moderately distended with fluid and air. Consider possible gastritis. There is no raul wel obstruction. 3. Resolved right hydronephrosis. 4. Colonic diverticulosis. 5. No change in the infrarenal abdominal aortic aneurysm. 6. Coronary artery disease. 7. Bhandari catheter within the decompressed bladder. 8. Small left pleural effusion and trace right pleural effusion.
[2016-10-08] MEDS ORDERED: ZOFRAN 4 MG/2 ML IVP STA (17:57)
[2016-10-08] MEDS ORDERED: PROTONIX IV ONE ×2 (18:28→20:58)
[2016-10-08] MEDS: PROTONIX IV 40 MG in SODIUM CHLORIDE 100 ML IV SCH ×2 (18:37→21:07)
[2016-10-08] MEDS ORDERED: SODIUM CHLORIDE 100 ML IV ONE (18:37)
[2016-10-08] MEDS ORDERED: PROTONIX ONE (20:57)
[2016-10-09] MEDS ORDERED: POTASSIUM CHLORIDE 20 MEQ VIAL-ADDITIVE ONLY IV ONE (04:09)
[2016-10-09] MEDS: [UNRECOGNIZED DRUG - MIXTURE] IV SCH (04:19)
[2016-10-09] MEDS: XOPENEX 0.63 MG NEB SCH ×2 (05:09→11:06)
[2016-10-09 06:58] LABS: BASOPHILS % (AUTO) 0.3 % (0.0-3.0); EOSINOPHILS # (AUTO) 0.5 K/ul (0.0-0.7); EOSINOPHILS % (AUTO) 3.8 % (0.0-7.0); HEMATOCRIT 30.6 % (37.0-47.0); HEMOGLOBIN 10.2 g/dl (12.0-16.0); IMMATURE GRANULOCYTE % (AUTO) 1.1 % (0.0-5.0); LYMPHOCYTES # (AUTO) 2.3 K/uL (0.60-3.4); LYMPHOCYTES % (AUTO) 18.4 (10.0-50.0); MEAN CORPUSCULAR HEMOGLOBIN 29.6 pg (27.0-31.0); MEAN CORPUSCULAR HGB CONC 33.3 (31.8-35.4); MEAN CORPUSCULAR VOLUME 88.7 fl (81.0-99.0); MONOCYTES % (AUTO) 8.4 (0-10); NEUTROPHILS # (AUTO) 8.4 K/ul (2.0-6.9); PLATELET COUNT 172 10^3/uL (140-440); RED BLOOD COUNT 3.45 10^6/ul (4.20-5.40); WHITE BLOOD COUNT 12.26 K/ul (4.6-10.2)
[2016-10-09 07:32] LABS: ALBUMIN 2.2 g/dL (3.4-5.0); ALBUMIN/GLOBULIN RATIO 0.51; ANION GAP 14.7; BILIRUBIN,TOTAL 0.41 mg/dL (0.00-1.20); BUN/CREATININE RATIO 15.73; CALCIUM 8.1 mg/dL (8.2-10.2); CREATININE 0.89 mg/dL (0.60-1.30); POTASSIUM 3.7 mmol/L (3.5-5.10); TOTAL PROTEIN 6.5 g/dL (5.8-8.1)
[2016-10-09 07:39] LABS: ESR INTERNAL QC INTERNAL QC VALID
[2016-10-09 07:44] LABS: ERYTHROCYTE SEDIMENTATION RATE 65 mm/hr (0-20)
[2016-10-09] MEDS: BACTROBAN TP SCH (08:10)
[2016-10-09] MEDS: ROCEPHIN 1 GM in SODIUM CHLORIDE 50 ML IV SCH (08:10)
[2016-10-09] MEDS: CALCIUM 500 + VIT D 200 MG TABLET PO SCH ×2 (08:10→09:35)
[2016-10-09] MEDS: LOVENOX SUBCUT SCH (08:11)
--- NOTE | 2016-10-09 09:20 | PN ---
DATE OF VISIT: 10/08/16 The patient is alert, but not responsive verbally. She doesn't follow any verbal commands. This patient had been vomiting and the patient is kept NPO and a CT scan of the abdomen and pelvis was done. The patient is noted to have some gastric distention, as well as fluid in the esophagus and probably esophagitis. Also, some gastritis per CT scan. This patient is given Protonix beginning this afternoon at 40 mg IV every 12 hours. I would try to discuss this with the radiologist tomorrow to see if there is any obstruction. If there is none, that I would like to give a medication such as Reglan to help empty the stomach. ABDOMEN: Soft with no remarkable tenderness and bowel sounds are active. Earlier in the afternoon I had a discussion with her POA, grandson Gaston Johnson. I did inform Mr. Johnson that Ms. Agustin had improved from where she was when she came in. She is not eating very much in the last two days. I did not know about the vomiting when I talked to him. He told me that she had been in the last couple of weeks prior to this episode. I did inform him that to support her nutritionally that she might have to have a gastric feeding tube , which the family doesn't want. There is not enough nutrition for a continued IV unless it is a central line. I suggested about Hospice and he wanted to know a little bit about it and I told him to call the senior care so they can direct him to which Hospice that he would like. I told him that there is [facility] and one in [facility]. I told him that I will talk to him again sometime tomorrow. CAROLINA
[2016-10-09] MEDS: VANCOMYCIN 500 MG in SODIUM CHLORIDE 100 ML IV SCH (09:32)
[2016-10-09 10:40] VITALS: BP 138/74; TEMP 97.1
[2016-10-09] MEDS: PROTONIX IV 40 MG in SODIUM CHLORIDE 100 ML IV SCH (10:44)
--- NOTE | 2016-10-09 12:56 | DI ---
EXAM: Single view of the abdomen. History: Abdominal pain, gastric distension. Comparison: CT abdomen pelvis 10/08/2016 Findings: Atherosclerotic vascular calcifications with abdominal aortic aneurysm again noted. Nono bstructive bowel gas pattern. The enteric contrast material passes through the stomach and is seen within portions of the small bowel and colon. There is no extravasation of contrast material. No f ree intraperitoneal air. No acute osseous abnormalities. Impression: 1. No gastric outlet obstruction and no bowel obstruction. 2. Abdominal aortic aneurysm.
--- NOTE | 2016-10-12 09:05 | CONS ---
DATE OF CONSULTATION: 10/09/16 REASON FOR CONSULTATION: General evaluation. HISTORY OF PRESENT ILLNESS: The patient is an 85 year old white female hospitalized with pneumonia on . The patient has contractures of upper and lower extremities. The patient is being treated with pneumonia likely source seems to be aspiration. The patient is on Invanz 0.5 along with Vancomycin. On x-ray the patient has left lower lobe infiltrate with trace effusion which was CT chest and CT of head is negative. The patient also has right elbow wound and right coccygeal area decubitus. REVIEW OF SYSTEMS: CONSTITUTIONAL: No night sweats. No fatigue, malaise, lethargy. No fever or chills. HEENT: Eyes: No visual changes. No eye pain. No eye discharge. ENT: No runny nose. No epistaxis. No sinus pain. No sore throat. No odynophagia. No ear pain. No congestion. RESPIRATORY: No cough, no congestion. No hemoptysis. CARDIOVASCULAR: No angina symptoms. No CHF symptoms. No atypical chest pain for CAD. No palpitations. No shortness of breath. GASTROINTESTINAL: No abdominal pain. No nausea or vomiting. No diarrhea or constipation. No hematemesis. No hematochezia. GENITOURINARY: No urgency. No frequency. No dysuria. No hematuria. No obstructive symptoms. No discharge. No pain. No significant abnormal bleeding. MUSCULOSKELETAL: No musculoskeletal pain. No joint swelling. NEUROLOGICAL: No headache. No neck pain. No syncope. No seizures. No dizziness. PSYCHIATRIC: Not anxious. No depression. No suicidal thoughts. No homicidal thoughts. SKIN: No rash. No lesions. No wounds. ENDOCRINE: No unexplained weight loss. No weight gain. HEMATOLOGIC/LYMPHATIC: No anemia. No purpura. No petechiae. No prolonged or excessive bleeding. No palpable lymph nodes. MEDICATIONS: ALLERGIES: PAST MEDICAL HISTORY: PAST SURGICAL HISTORY: SOCIAL/PERSONAL/FAMILY HISTORY: PHYSICAL EXAMINATION: GENERAL: The patient seems to be alert but confused. VITAL SIGNS: HEENT: Head normocephalic, atraumatic. Eyes: Extraocular muscles are intact. Pupils are equal, round and reactive to light and accommodation. Ears: No lesions. Nose appeared normal. Throat: No exudate or erythema. Face: Symmetrical, sclerae not icteric. NECK: Supple. No JVP, no carotid bruit. No lymphadenopathy or thyromegaly. LUNGS: Decreased breath sounds. Clear to auscultation. Percussion note normal. Chest symmetrical. HEART: S1, S2, no S3. No murmurs. No cyanosis or clubbing. No ascites. Pulses: Dorsalis pedis and posterior tibial pulses +1 to +2 both sides. ABDOMEN: Soft. Nontender. Bowel sounds active. No CVA tenderness. No mass felt. EXTREMITIES: No edema. Full range of motion of all extremities, equal. Upper and lower extremity contracture noted. NEUROLOGIC: No focal deficit. Cranial nerves II through XII are grossly intact. No headache, no double vision or headache. SKIN: Not dry. Intact. Turgor - normal. LYMPHATIC: No palpable lymph nodes/no lymphedema. MUSCULOSKELETAL: Normal joints with no swelling. Muscle tone is normal. LABS: Hgb 10.9, hct 34, WBC 11,400 normal differential, creatinine 0.9, BUN 10, potassium 4, Total proteins albumin low. ASSESSMENT: 1. Aspiration pneumonitis likely 2. Dementia 3. Contractures 4. Chronic lung disease, restrictive RECOMMENDATION: 1. Agreed with present management with Vancomycin, Rocephin, NEBS treatment. 2. Decubitus agreed. The patient's overall nutritional status is not good. Will continue to deteriorate with shearing force and skin textures she has it will practically impossible to heal these ulcers. Prognosis for healing is poor 3. Agreed with overall management. CONDITION: Stable PROGNOSIS: Stable MTDD
--- NOTE | 2016-10-15 13:26 | DS ---
PATIENT IDENTIFICATION: 85 year old female resident of [facility] and a patient of Dr. Sosa was seen at the emergency room and was subsequently admitted. 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 She also was cold and clammy. CT scan of the chest showed left lower lobe infiltrate, probably pneumonitis with some pleural effusion. She has a chronic Garcia catheter in place and the urinalysis was abnormal. The ESR is 76 , probably secondary to the ongoing infection. Her Procalcitonin was markedly elevated at 56.41. White cell count 26,340. Urinalysis leukocyte esterase 2+, blood 3+, RBC 10-20, WBC 5-10, no epithelial cells, urine bacteria 2+. The patient, while in the emergency room, was given Vancomycin IV, as well as Zosyn 3.375 grams once. She also had an open wound in the right posterior elbow. HOSPITAL COURSE: The Zosyn was discontinued since there is an increased renal problem with the combination of Vancomycin and Zosyn compared to other broad spectrum antibiotic combinations. Ceftriaxone 1 gram was given after the Zosyn was discontinued. I had a discussion with the Triage Clinician at the hospital. The patient's temperature remained normal, but the axillary temperature was 98.6, which would one degree Fahrenheit lower than what would be the internal temperature. In essence, this patient has a fever. Wound culture showed heavy growth of gram positive cocci, staph aureus, methicillin resistant sensitive to Zyvox, Rifampin, Quinupristin, Bactrim and Vancomycin. Blood cultures were negative and remained negative after five days. Urine culture showed the Klebsiella pneumonia and sensitive to Ceftriaxone. This patient is getting on board Vancomycin and Ceftriaxone, which are appropriate for the culture results. The patient was more or less lethargic on admission and gradually become more alert, although never oriented and does not follow verbal commands. Her color was much better. Subsequent CBC's showed decreasing WBC and returned to normal at 7,690 on 10/07/2016. Procalcitonin also had been gradually decreasing and was 22.28 on 10/07/2016 and 45.2 on 10/06/2016. The vital signs remained stable and the GFR had improved from 25 on admission 10/04/2016 to 63 on 10/07/2016. Urinalysis was repeated on 10/07/2016 showing RBC 5-10, WBC 5-10. Now there are squamous epithelial cells 10-20. Leukocyte esterase is now 1+ and urine bacteria is 1+ from 2+. Urine yeast is 2+, not previously present. Another urinalysis was done on 10/08/2016 and this is much better than the day before. The WBC is now 2-5, epithelial cells not present, yeast 1+, no bacteria, urine blood 1+, leukocyte esterase remained at 1+. The patient is alert and had eaten a little bit, 10% to 25%. The patient had vomited and so she was kept NPO. The gastrograph series was done to document the presence or absence of gastric outlet obstruction since the patient does have food in her stomach with distention, as well as fluid in the esophagus. This patient was given Protonix 40 mg IV twice a day. There was diagnosis of esophagitis based upon the CT scan. VITAL SIGNS: On 10/09/2016, temperature 97.1 orally, pulse 62, blood pressure 138/74, respiratory rate 18, oxygen saturation 96 at 2 liters. GENERAL: The patient is alert and does open her eyes when you try to talk to her, but she never follows any verbal commands. LUNGS: The lungs are very hard to appreciate any abnormalities since she does not take deep breaths on command. HEART: Audible and remained regular. The patient had not been eating very much, so I did talk to the POA, who is her grand nephew. I did inform him about difficulty maintaining her oral feedings and the patient does not eat very much and IV would not be able to sustain her calorie needs. She would need to have a feeding tube. He did tell me that the family does not want any feeding tube. I did advise him then to seek Hospice Care, so no one had to feed her forcefully. He was agreeable to Hospice. I did tell him to get in touch with the senior care as to what Hospice they do subscribe. The patient was still requiring IV antibiotics and so the patient was discharged from acute care to [facility]. FINAL DIAGNOSES: 1. LEFT LOWER LOBE PNEUMONITIS 2. URINARY TRACT INFECTION WITH PROBABLE SEPSIS 3. SENILE DEMENTIA, SEVERE 4. 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 HYDROURETER AND HYDRONEPHROSIS, RESOLVED AFTER THE CATHETER WAS DISPLACED AND CHANGED TO A NEW ONE. DISTAL END OF THE URETER ON THE RIGHT WAS INTUBATED WITH THE GARCIA CATHETER. 6. ANEMIA, MILD TO MODERATE PROGNOSIS: Poor. MTDD
== END 2016-10-09 13:00 | disposition swing bed (61) | DRG 193 ==
LOC: ED 07:47 → MEDSURG B 09:34
PROVIDERS: ADMIT General Practice; ATTEND General Practice
DX: J18.1 Lobar pneumonia, unspecified organism (principal); A41.9 Sepsis, unspecified organism; N12 Tubulo-interstitial nephritis, not specified as acute or chronic; N13.30 Unspecified hydronephrosis; I71.4 Abdominal aortic aneurysm, without rupture; R06.02 Shortness of breath; K20.9 Esophagitis, unspecified; K29.70 Gastritis, unspecified, without bleeding; F03.90 Unspecified dementia, unspecified severity, without behavioral disturbance, psychotic disturbance, mood disturbance, and anxiety; L89.019 Pressure ulcer of right elbow, unspecified stage; D64.9 Anemia, unspecified; M24.542 Contracture, left hand; B96.1 Klebsiella pneumoniae [K. pneumoniae] as the cause of diseases classified elsewhere; Z79.899 Other long term (current) drug therapy; Z16.11 Resistance to penicillins
CPT/HCPCS: 36415; 80053; 80069; 80202; 81001; 82803; 83605; 84145; 85025; 85651; 87040; 87070; 87081; 87086; 87186; 93005; 93010; 94640; 96361; 96365; 99284

== ENCOUNTER 2016-10-09 13:07 | Inpatient (IN) ==
[2016-10-09 13:29] VITALS: BMI 23.0
--- NOTE | 2016-10-09 13:35 | PN ---
DATE OF VISIT: 10/09/16 The patient is alert, but not oriented. She does not follow verbal commands, although she opens her eyes. Her color is good and she is not dyspneic, nor tachypneic. It is hard to hear her breath sounds since she doesn't follow verbal commands. HEART: Audible with good tones. ABDOMEN: Soft. VITAL SIGNS: This morning at 5:29 a.m. showed a temperature of 98.6 axillary, pulse 72, blood pressure 114/84, respiratory rate 20. She is getting 2 liters of nasal oxygen. No oximetry had been done. The CBC showed slight leukocytosis at 12,260. It is somewhat slowly rising. The ESR is 65 and was 76 on admission. The Procalcitonin is now to 4.71 from a high on admission of 56.41. Electrolytes are normal, as well as renal with the E GFR now 71. The stomach doesn't empty. She had been kept NPO yesterday because of her vomiting. A CT scan did show some gastric distention with fluid, as well as fluid in the esophagus. There maybe some esophagitis, plus gastritis. This patient was placed on Protonix 40 mg IV every 12 hours[address] I discussed with Dr. Barragan today the CT scan that was yesterday which he read. I proposed that this patient should have a gastrography and see if the stomach empties. If if does empty, that I would give this patient Reglan and see if it would improve the emptying of the stomach. He thought that was a good idea. The patient is still receiving antibiotics for the urinary tract problems, as well as the MRSA in the right elbow. That area in the elbow is healing, but not complete. CAROLINA
[2016-10-09] MEDS ORDERED: DULCOLAX PO PRN ×2 (14:09→14:28)
[2016-10-09] MEDS ORDERED: MILK OF MAGNESIA PO PRN ×2 (14:21→15:13)
[2016-10-09] MEDS ORDERED: MAGNESIUM HYDROXIDE 2400 MG PO PRN ×2 (14:28→15:13)
[2016-10-09] MEDS: XOPENEX 0.63 MG NEB SCH ×2 (17:36→23:13)
[2016-10-09] MEDS: [UNRECOGNIZED DRUG - MIXTURE] IV SCH (19:31)
[2016-10-09] MEDS ORDERED: CALCIUM 500 + VIT D 200 MG TABLET PO SCH (21:00)
[2016-10-09] MEDS ORDERED: CALCIUM CARBONATE 500 MG PO SCH (21:00)
[2016-10-09] MEDS: BACTROBAN TP SCH (21:30)
[2016-10-09] MEDS: PROTONIX IV 40 MG in SODIUM CHLORIDE 100 ML IV SCH (21:30)
[2016-10-09] MEDS: CALCIUM 500 + VIT D 200 MG TABLET PO SCH (21:31)
[2016-10-10] MEDS: XOPENEX 0.63 MG NEB SCH ×4 (04:59→23:22)
[2016-10-10 05:08] LABS: BASOPHILS % (AUTO) 0.4 % (0.0-3.0); EOSINOPHILS % (AUTO) 9.3 % (0.0-7.0); HEMATOCRIT 29.1 % (37.0-47.0); HEMOGLOBIN 9.7 g/dl (12.0-16.0); IMMATURE GRANULOCYTE % (AUTO) 1.4 % (0.0-5.0); LYMPHOCYTES # (AUTO) 2.2 K/uL (0.60-3.4); LYMPHOCYTES % (AUTO) 21.2 (10.0-50.0); MEAN CORPUSCULAR HEMOGLOBIN 29.3 pg (27.0-31.0); MEAN CORPUSCULAR HGB CONC 33.3 (31.8-35.4); MEAN CORPUSCULAR VOLUME 87.9 fl (81.0-99.0); MONOCYTES # (AUTO) 0.9 K/uL (0.4-2.0); MONOCYTES % (AUTO) 8.8 (0-10); NEUTROPHILS # (AUTO) 6.1 K/ul (2.0-6.9); NEUTROPHILS % (AUTO) 58.9; PLATELET COUNT 191 10^3/uL (140-440); RED BLOOD COUNT 3.31 10^6/ul (4.20-5.40)
[2016-10-10 05:30] LABS: ALBUMIN 2.2 g/dL (3.4-5.0); ALBUMIN/GLOBULIN RATIO 0.54; ANION GAP 15.7; BILIRUBIN,TOTAL 0.36 mg/dL (0.00-1.20); BUN/CREATININE RATIO 9.3; CREATININE 0.86 mg/dL (0.60-1.30); POTASSIUM 3.7 mmol/L (3.5-5.10); TOTAL PROTEIN 6.3 g/dL (5.8-8.1)
[2016-10-10] MEDS: CALCIUM 500 + VIT D 200 MG TABLET PO SCH ×2 (08:39→20:27)
[2016-10-10] MEDS: LOVENOX SUBCUT SCH (08:39)
[2016-10-10] MEDS: ROCEPHIN 1 GM in SODIUM CHLORIDE 50 ML IV SCH (08:39)
[2016-10-10] MEDS: BACTROBAN TP SCH ×2 (08:43→20:27)
[2016-10-10] MEDS: PROTONIX IV 40 MG in SODIUM CHLORIDE 100 ML IV SCH ×2 (09:35→20:27)
[2016-10-10] MEDS: VANCOMYCIN 500 MG in SODIUM CHLORIDE 100 ML IV SCH (10:55)
[2016-10-10] MEDS: VITAMIN B-12 IM SCH (11:52)
[2016-10-10] MEDS ORDERED: POTASSIUM CHLORIDE 20 MEQ VIAL-ADDITIVE ONLY IV ONE (12:42)
[2016-10-10] MEDS: [UNRECOGNIZED DRUG - MIXTURE] IV SCH (12:49)
[2016-10-11] MEDS ORDERED: POTASSIUM CHLORIDE 20 MEQ VIAL-ADDITIVE ONLY IV ONE (00:34)
[2016-10-11] MEDS: [UNRECOGNIZED DRUG - MIXTURE] IV SCH (01:38)
[2016-10-11] MEDS: XOPENEX 0.63 MG NEB SCH ×4 (05:08→23:21)
[2016-10-11] MEDS: VITAMIN B-12 IM SCH (08:25)
[2016-10-11] MEDS: PROTONIX IV 40 MG in SODIUM CHLORIDE 100 ML IV SCH ×2 (08:25→20:34)
[2016-10-11] MEDS: CALCIUM 500 + VIT D 200 MG TABLET PO SCH ×2 (08:26→20:34)
[2016-10-11] MEDS: LOVENOX SUBCUT SCH (08:26)
[2016-10-11] MEDS: BACTROBAN TP SCH ×2 (08:27→20:34)
[2016-10-11] MEDS: ROCEPHIN 1 GM in SODIUM CHLORIDE 50 ML IV SCH (09:40)
[2016-10-11] MEDS: NYSTOP POWDER TP SCH ×2 (10:12→20:34)
[2016-10-11] MEDS: VANCOMYCIN 500 MG in SODIUM CHLORIDE 100 ML IV SCH (10:44)
[2016-10-12] MEDS ORDERED: POTASSIUM CHLORIDE 20 MEQ VIAL-ADDITIVE ONLY IV ONE ×2 (01:33→17:28)
[2016-10-12] MEDS: [UNRECOGNIZED DRUG - MIXTURE] IV SCH ×2 (01:38→17:34)
[2016-10-12] MEDS: XOPENEX 0.63 MG NEB SCH ×4 (05:40→23:44)
[2016-10-12] MEDS: VITAMIN B-12 IM SCH (08:46)
[2016-10-12] MEDS: LOVENOX SUBCUT SCH (08:46)
[2016-10-12] MEDS: ROCEPHIN 1 GM in SODIUM CHLORIDE 50 ML IV SCH (08:46)
[2016-10-12] MEDS: CALCIUM 500 + VIT D 200 MG TABLET PO SCH ×2 (08:47→20:33)
[2016-10-12] MEDS: BACTROBAN TP SCH ×2 (08:48→20:33)
[2016-10-12] MEDS: NYSTOP POWDER TP SCH ×2 (08:48→20:33)
[2016-10-12] MEDS: VANCOMYCIN 500 MG in SODIUM CHLORIDE 100 ML IV SCH (09:49)
[2016-10-12] MEDS: PROTONIX IV 40 MG in SODIUM CHLORIDE 100 ML IV SCH ×2 (11:06→20:33)
[2016-10-12 12:56] LABS: BASOPHILS # (AUTO) 0.1 K/uL (0-0.2); BASOPHILS % (AUTO) 0.6 % (0.0-3.0); EOSINOPHILS # (AUTO) 0.5 K/ul (0.0-0.7); HEMATOCRIT 27.4 % (37.0-47.0); IMMATURE GRANULOCYTE % (AUTO) 1.2 % (0.0-5.0); LYMPHOCYTES # (AUTO) 2.4 K/uL (0.60-3.4); LYMPHOCYTES % (AUTO) 30.4 (10.0-50.0); MEAN CORPUSCULAR HEMOGLOBIN 29.8 pg (27.0-31.0); MEAN CORPUSCULAR HGB CONC 32.8 (31.8-35.4); MEAN CORPUSCULAR VOLUME 90.7 fl (81.0-99.0); MONOCYTES # (AUTO) 0.6 K/uL (0.4-2.0); MONOCYTES % (AUTO) 7.9 (0-10); NEUTROPHILS # (AUTO) 4.1 K/ul (2.0-6.9); NEUTROPHILS % (AUTO) 52.9; PLATELET COUNT 169 10^3/uL (140-440); RED BLOOD COUNT 3.02 10^6/ul (4.20-5.40); WHITE BLOOD COUNT 7.76 K/ul (4.6-10.2)
--- NOTE | 2016-10-12 13:01 | CONS ---
DATE OF SERVICE: 10/10/16 CONSULT FOLLOWUP SUBJECTIVE: The patient is an 85 year old white female was seen on consultation for general evaluation. The patient is being treated with IV antibiotics for pneumonia. The patient's condition hasn't changed and she is laying, half sleepy, seems to be confused, opened her eyes with verbal command but doesn't seem to focus quickly. She is moving all her extremities but mainly has contractures of her upper and lower extremities. REVIEW OF SYSTEMS: CONSTITUTIONAL: No night sweats. No fatigue, malaise, lethargy. No fever or chills. Confusion. HEENT: Eyes: No visual changes. No eye pain. No eye discharge. ENT: No runny nose. No epistaxis. No sinus pain. No sore throat. No odynophagia. No ear pain. No congestion. RESPIRATORY: No cough, no congestion. No hemoptysis. CARDIOVASCULAR: No angina symptoms. No CHF symptoms. No atypical chest pain for CAD. No palpitations. No shortness of breath. No. PND. No Orthopnea. GASTROINTESTINAL: No abdominal pain. No nausea or vomiting. No diarrhea or constipation. No hematemesis. No hematochezia. GENITOURINARY: No urgency. No frequency. No dysuria. No hematuria. No obstructive symptoms. No discharge. No pain. No significant abnormal bleeding. MUSCULOSKELETAL: No musculoskeletal pain. No joint swelling. No arthritis. NEUROLOGICAL: No headache. No neck pain. No syncope. No seizures. No dizziness. PSYCHIATRIC: Not anxious. No depression. No suicidal thoughts. No homicidal thoughts. SKIN: No rash. No lesions. No wounds. ENDOCRINE: No unexplained weight loss. No weight gain. HEMATOLOGIC/LYMPHATIC: No anemia. No purpura. No petechiae. No prolonged or excessive bleeding. No palpable lymph nodes. PHYSICAL EXAMINATION: GENERAL: The patient is alert but somewhat sleepy. VITAL SIGNS: Temperature 98.5, pulse 79, respiratory rate 20, blood pressure 92/ 58 and pulse ox 95%. HEENT: Head normocephalic, atraumatic. Eyes: Extraocular muscles are intact. Pupils are equal, round and reactive to light and accommodation. Ears: No lesions. Nose appeared normal. Throat: No exudate or erythema. NECK: Supple. No JVD, no carotid bruit. No lymphadenopathy or thyromegaly. LUNGS: Decreased breath sounds but Clear to auscultation. Percussion note normal. Chest symmetrical. HEART: S1, S2, no S3. No murmurs. No cyanosis or clubbing. No ascites. Pulses: Dorsalis pedis and posterior tibial pulses +1 to +2 both sides. ABDOMEN: Soft. Nontender. Bowel sounds active. No CVA tenderness. No mass felt. EXTREMITIES: No edema. Full range of motion of all extremities, equal. NEUROLOGIC: No focal deficit. Cranial nerves II through XII are grossly intact. No headache, no double vision or headache. SKIN: Not dry. Intact. Turgor - normal. LYMPHATIC: No palpable lymph nodes/no lymphedema. MUSCULOSKELETAL: Normal joints with no swelling. Muscle tone is normal. ASSESSMENT: 1. Pneumonitis 2. Contractures 3. Dementia RECOMMENDATIONS: 1. Agreed with Vancomycin and Rocephin combination 2. The patient's condition it stable, pneumonia seems to be under control clinically. 3. No other obvious cardiovascular symptoms CONDITION: Stable MTDD
--- NOTE | 2016-10-12 13:02 | PN ---
The patient seen on Consultation 10/09/16: Level 5 Followup 10/10/16: Intermediate MTDD
[2016-10-12 13:13] LABS: ALBUMIN 2.1 g/dL (3.4-5.0); ANION GAP 15.9; BUN/CREATININE RATIO 5.2; CALCIUM 8.1 mg/dL (8.2-10.2); CREATININE 0.96 mg/dL (0.60-1.30); PHOSPHORUS 3.4 mg/dL (2.8-4.1); POTASSIUM 3.9 mmol/L (3.5-5.10)
--- NOTE | 2016-10-12 14:45 | CT ---
EXAM: CT THORAX HISTORY: Pneumonia, follow-up. TECHNIQUE: CT thorax without intravenous contrast. 5-mm axial sections. Coronal and sagittal re-fo rmations. COMPARISON: 10/04/2016 FINDINGS: Upper limit normal heart size is stable. There is no pericardial effusion. Moderate atheroscleroti c disease. There is irregular pleuroparenchymal thickening in the apices with regional calcified pleural plaque s. Mild consolidation and trace pleural fluid on the left posteriorly. Lungs are otherwise grossly unremarkable. No active congestive heart failure or central interstitial edema. No pneumothorax. The bones reveal exaggerated thoracic kyphosis. Abdominal aortic aneurysm is 4.7 cm at the infraren al aspect. There is a small para esophageal hernia. Fluid within the esophagus consistent with gas troesophageal reflux. IMPRESSION: 1. Persistent mild consolidation in the left lung base. There has been development of a tiny left pleural effusion. 2. Calcified apical pleural plaques. 3. Atherosclerotic disease. 4. Small para esophageal hernia with gastroesophageal reflux. 5. Exaggerated thoracic kyphosis. 6. Abdominal aortic aneurysm.
[2016-10-13 05:00] LABS: BASOPHILS # (AUTO) 0.1 K/uL (0-0.2); BASOPHILS % (AUTO) 0.6 % (0.0-3.0); EOSINOPHILS # (AUTO) 0.6 K/ul (0.0-0.7); EOSINOPHILS % (AUTO) 7.7 % (0.0-7.0); HEMATOCRIT 28.9 % (37.0-47.0); HEMOGLOBIN 9.6 g/dl (12.0-16.0); IMMATURE GRANULOCYTE % (AUTO) 1.5 % (0.0-5.0); LYMPHOCYTES # (AUTO) 1.5 K/uL (0.60-3.4); LYMPHOCYTES % (AUTO) 18.6 (10.0-50.0); MEAN CORPUSCULAR HEMOGLOBIN 29.3 pg (27.0-31.0); MEAN CORPUSCULAR HGB CONC 33.2 (31.8-35.4); MEAN CORPUSCULAR VOLUME 88.1 fl (81.0-99.0); MONOCYTES # (AUTO) 0.8 K/uL (0.4-2.0); MONOCYTES % (AUTO) 9.7 (0-10); NEUTROPHILS # (AUTO) 4.9 K/ul (2.0-6.9); NEUTROPHILS % (AUTO) 61.9; PLATELET COUNT 243 10^3/uL (140-440); RED BLOOD COUNT 3.28 10^6/ul (4.20-5.40)
[2016-10-13] MEDS: XOPENEX 0.63 MG NEB SCH ×2 (05:27→11:08)
[2016-10-13 05:30] LABS: ALBUMIN 2.4 g/dL (3.4-5.0); ALBUMIN/GLOBULIN RATIO 0.57; ANION GAP 14.8; BILIRUBIN,TOTAL 0.36 mg/dL (0.00-1.20); BUN/CREATININE RATIO 4.9; CALCIUM 8.7 mg/dL (8.2-10.2); CREATININE 1.02 mg/dL (0.60-1.30); POTASSIUM 3.8 mmol/L (3.5-5.10); TOTAL PROTEIN 6.6 g/dL (5.8-8.1)
[2016-10-13 06:24] VITALS: TEMP 98.7
[2016-10-13] MEDS ORDERED: POTASSIUM CHLORIDE 20 MEQ VIAL-ADDITIVE ONLY IV ONE ×2 (06:40→06:48)
[2016-10-13 06:44] VITALS: BP 120/76
[2016-10-13] MEDS: [UNRECOGNIZED DRUG - MIXTURE] IV SCH ×2 (06:55→14:38)
[2016-10-13] MEDS: ROCEPHIN 1 GM in SODIUM CHLORIDE 50 ML IV SCH (08:31)
[2016-10-13] MEDS: LOVENOX SUBCUT SCH (08:32)
[2016-10-13] MEDS: CALCIUM 500 + VIT D 200 MG TABLET PO SCH (08:33)
[2016-10-13] MEDS: VITAMIN B-12 IM SCH (08:33)
[2016-10-13] MEDS: BACTROBAN TP SCH (09:26)
[2016-10-13] MEDS: PROTONIX IV 40 MG in SODIUM CHLORIDE 100 ML IV SCH (09:26)
[2016-10-13] MEDS: NYSTOP POWDER TP SCH (09:27)
--- NOTE | 2016-10-15 09:12 | PN ---
DATE OF VISIT: 10/12/16 85 year old female who was admitted to the hospital because of lethargy, severe leukocytosis and urinary tract infection. The patient's Procalcitonin was markedly elevated. Blood cultures, however, were never positive for any bacterial growth. The patient, today, is much more alert and her color is better and not dyspneic , tachypneic. She did eat some and the nurse told me that she ate about half of her lunch. LUNGS: I could not hear anything in her lungs since she doesn't cooperate. She doesn't follow verbal commands. HEART: Audible and regular with good tones. ABDOMEN: Soft with no remarkable tenderness. Bowel sounds are active. This patient still has some intermittent jerking movements, but not as frequent. The ulceration in the right posterior elbow is smaller, but still deep. She has no signs of any cellulitis or infection. I did advise the nurse to put a warm moist compress during the daytime and a Bactroban, plus dressing and in the evening. This patient's Procalcitonin now is normal at 0.67. GFR 56. The Vancomycin is discontinued today, as the urinalysis was normal. Chest CT showed persistent mild consolidation in the left lung base. Calcified pleural plaques, apical. Small para esophageal hernia with gastroesophageal reflux. Abdominal aortic aneurysm. Is is 4.7 cm infrarenal. I mentioned Hospice to the family and to the POA since they do not want any feeding tube inserted. The patient at this point has improved remarkably from her condition at presentation to the emergency room. She does have a persistent ulceration that it is not healing in the right posterior elbow. It would need Wound Care, but then it becomes a logistical problem transporting her to Wound Care and back. If that can be arranged, the patient will be seen at Wound Care at [place] once a week. The patient has improved remarkably, but the prognosis hasn't changed. MERID
--- NOTE | 2016-10-15 09:37 | DS ---
PATIENT IDENTIFICATION: 85 year old female admitted to Transitional Care on 10/09/2016 from acute care and discharged 10/13/2016. This patient was admitted 10/04/2016 because of lethargy, cold, clammy perspiration, vomiting and fever. HOSPITAL COURSE: The patient was found to have a markedly elevated WBC at 26, 000 plus and Procalcitonin 56.41. Urinalysis was abnormal and wound culture of the right elbow also was abnormal, MRSA. Urine culture was Klebsiella. This patient was getting Vancomycin IV, as well as Rocephin. Klebsiella is sensitive to Rocephin and the MRSA was sensitive to Vancomycin. The patient's vital signs had remained stable and she remained afebrile. The patient was able to eat a bit more compared to admission and consuming at times 25% of the meals. She was also getting a supplement, Boost. Her total oral intake on 10/11/16 was 670 and on 10/12/2016 was 630. On 10/13/2016 it was 380. The last urinalysis was better and no growth. The Procalcitonin was 0.67 from 56.41 on 10/12/2016. The WBC now is normal at 7,900 on 10/13/2016. The E GFR is 52. The Vancomycin was discontinued, as well as the Rocephin on the day of discharge. Mrs. Braxton Robyn RN, BSN had conversation with the POA with regards to Hospice and she told me that he is agreeable. The patient is then discharged today, 10/13/2016 with a temperature of 98.7, axillary, pulse rate 68, blood pressure 120/76, respiratory rate 20. Oxygen saturation 97 at 2 liters and 96 at room air. She is alert, but not responsive to verbal stimulus and does not follow verbal commands. There are no ulcerations or pressure ulcerations in the heels. HEART: Regular. Audible with good tones. ABDOMEN: Soft with no remarkable tenderness. CT on 10/12/16 showed persistent mild consolidation in the left lung base and the rest are the same. Abdominal aortic aneurysm 4.7 cm. This patient also was seen by Dr. Iverson, Truck Crane Operator for general evaluation of her general condition. The patient is continued on her previous medications and the new medication is Protonix 40 mg p.o. daily before a meal. Continue with the Bactroban dressing on the right posterior elbow. The patient is returned to Dr. Guerrero's services. FINAL DIAGNOSES: 1. LEFT LOWER LOBE PNEUMONITIS 2. URINARY TRACT INFECTION WITH PROBABLE SEPSIS 3. MARKEDLY ELEVATED PROCALCITONIN 4. 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 MTDD
== END 2016-10-13 14:34 | DRG 194 ==
LOC: MEDSURG B 13:07
PROVIDERS: ADMIT General Practice; ATTEND General Practice
DX: J18.1 Lobar pneumonia, unspecified organism (principal); N39.0 Urinary tract infection, site not specified; B96.1 Klebsiella pneumoniae [K. pneumoniae] as the cause of diseases classified elsewhere; I71.9 Aortic aneurysm of unspecified site, without rupture; F03.90 Unspecified dementia, unspecified severity, without behavioral disturbance, psychotic disturbance, mood disturbance, and anxiety; M20.092 Other deformity of left finger(s); M24.542 Contracture, left hand; L98.499 Non-pressure chronic ulcer of skin of other sites with unspecified severity; B95.62 Methicillin resistant Staphylococcus aureus infection as the cause of diseases classified elsewhere; K21.9 Gastro-esophageal reflux disease without esophagitis; K20.9 Esophagitis, unspecified; K29.70 Gastritis, unspecified, without bleeding; Z79.899 Other long term (current) drug therapy
CPT/HCPCS: 36415; 80053; 80069; 84145; 84443; 85025; 94640; 97802

== ENCOUNTER 2016-10-13 14:35 | Outpatient (CLI) | END 2016-10-13 14:36 | LOC: AMBL 14:35 | PROVIDERS: ATTEND Internal Medicine | DX: A49.02 Methicillin resistant Staphylococcus aureus infection, unspecified site (principal); R40.4 Transient alteration of awareness; R47.01 Aphasia; Z87.01 Personal history of pneumonia (recurrent); Z74.01 Bed confinement status; Z87.820 Personal history of traumatic brain injury ==